=== PATIENT | female | born 1965 | race African-American/Black ===

== ENCOUNTER → 2016-12-31 09:00 | Outpatient (CLI) | payer OTHER ==
[2013-01-17 15:10] VITALS: BMI 34.7
[~2016-12-31 09:00] MED LIST: MOTRIN800 MG PO; PERCOCET 7.5/501 TA1 PO; SPRINTEC1 TAB PO; ZESTORETIC 20/11 TAB PO
== END | disposition home or self-care (01) ==
LOC: D.MAMMO 09:00
DX: Z12.31 Encounter for screening mammogram for malignant neoplasm of breast (principal)

== ENCOUNTER 2017-02-04 16:42 | Outpatient (CLI) | payer OTHER ==
[2013-01-17 15:10] VITALS: BMI 34.7
== END 2017-02-04 23:59 | disposition home or self-care (01) ==
LOC: D.MAMMO 16:42
DX: R92.8 Other abnormal and inconclusive findings on diagnostic imaging of breast (principal)

== ENCOUNTER 2018-01-09 19:00 | Outpatient (CLI) | payer OTHER ==
[2013-01-17 15:10] VITALS: BMI 34.7
== END 2018-01-09 23:59 | disposition home or self-care (01) ==
LOC: D.MAMMO 19:00
DX: Z12.31 Encounter for screening mammogram for malignant neoplasm of breast (principal)

== ENCOUNTER → 2018-01-30 20:48 | Outpatient (CLI) | payer OTHER ==
[2013-01-17 15:10] VITALS: BMI 34.7
== END | disposition home or self-care (01) ==
LOC: D.MAMMO 09:00
DX: R92.8 Other abnormal and inconclusive findings on diagnostic imaging of breast (principal)